=== PATIENT | male | born 1995 | race Two or more races ===

== ENCOUNTER 2018-08-01 10:50 | Emergency (ER) | payer MEDICAID, OTHER ==
[~2018-08-01] VITALS: Ht 177.8 cm; Wt 103.0 kg
[2018-08-01 10:55] VITALS: BP 143/89
[2018-08-01] MEDS ORDERED: PENI250T2 PO (11:12)
[2018-08-01] MEDS ORDERED: NAPR-56 PO (11:12)
== END 2018-08-01 11:15 | disposition home or self-care (01) ==
LOC: ER 10:51
DX: K08.89 Other specified disorders of teeth and supporting structures (principal); F12.90 Cannabis use, unspecified, uncomplicated; F15.90 Other stimulant use, unspecified, uncomplicated; F11.90 Opioid use, unspecified, uncomplicated; Z79.899 Other long term (current) drug therapy
CPT/HCPCS: 99283

== ENCOUNTER 2019-08-24 16:58 | Emergency (ER) | payer MEDICAID, OTHER ==
[~2019-08-24] VITALS: Ht 177.8 cm; Wt 119.0 kg
[2019-08-24 17:36] VITALS: BP 163/93
[2019-08-24] MEDS ORDERED: AMOX-422 PO (20:29)
== END 2019-08-24 20:51 | disposition home or self-care (01) ==
LOC: ER 16:59
DX: K08.89 Other specified disorders of teeth and supporting structures (principal); F12.90 Cannabis use, unspecified, uncomplicated; F15.90 Other stimulant use, unspecified, uncomplicated; F11.90 Opioid use, unspecified, uncomplicated; F10.99 Alcohol use, unspecified with unspecified alcohol-induced disorder; Z79.899 Other long term (current) drug therapy; Y90.9 Presence of alcohol in blood, level not specified
CPT/HCPCS: 99283

== ENCOUNTER 2020-09-18 17:23 | Emergency (ER) | payer MEDICAID ==
[~2020-09-18] VITALS: Ht 177.8 cm; Wt 100.0 kg
[2020-09-18] MEDS ORDERED: PENI500T2 PO (17:58)
[2020-09-18 18:03] VITALS: BP 158/100
== END 2020-09-18 18:04 | disposition home or self-care (01) ==
LOC: ER 17:23
DX: K08.89 Other specified disorders of teeth and supporting structures (principal); R22.0 Localized swelling, mass and lump, head; F12.90 Cannabis use, unspecified, uncomplicated; F15.90 Other stimulant use, unspecified, uncomplicated; F11.90 Opioid use, unspecified, uncomplicated; Z72.89 Other problems related to lifestyle; Z79.2 Long term (current) use of antibiotics
CPT/HCPCS: 99283

== ENCOUNTER 2020-11-09 19:36 | Emergency (ER) | payer MEDICAID ==
[~2020-11-09] VITALS: Ht 177.8 cm; Wt 113.6 kg
[2020-11-09 21:14] VITALS: BP 133/77
== END 2020-11-09 21:13 | disposition home or self-care (01) ==
LOC: ER 19:37
DX: R07.89 Other chest pain (principal); R42 Dizziness and giddiness; R06.02 Shortness of breath; F12.90 Cannabis use, unspecified, uncomplicated; F15.90 Other stimulant use, unspecified, uncomplicated; F11.90 Opioid use, unspecified, uncomplicated; Z72.89 Other problems related to lifestyle; Z56.0 Unemployment, unspecified
CPT/HCPCS: 71046; 93005; 99283

== ENCOUNTER 2024-10-09 18:32 | Emergency (ER) | payer MEDICAID ==
[~2024-10-09] VITALS: Ht 177.8 cm; Wt 108.5 kg
[2024-10-09 19:26] VITALS: BP 141/83; PULSE 90; RESP 18; TEMP 98.5; O2SAT 98
[2024-10-09] MEDS ORDERED: PROC-8 PO (21:19)
[2024-10-09] MEDS: ondansetron 4mg rapidly disintigrating tab PO ONE (21:51)
[2024-10-09] MEDS: acetaminophen 325mg tablet PO ONE (21:51)
[2024-10-09] MEDS: ketorolac trometh 15mg/ml vial 15 MG/ML ML IM ONE (21:52)
== END 2024-10-09 21:58 | disposition home or self-care (01) ==
LOC: ER 18:33
DX: R51.9 Headache, unspecified (principal); F15.90 Other stimulant use, unspecified, uncomplicated; F11.90 Opioid use, unspecified, uncomplicated; F12.90 Cannabis use, unspecified, uncomplicated
CPT/HCPCS: 96372; 99283; J1885